=== PATIENT | female | born 1995 | race Caucasian/White ===

== ENCOUNTER 2017-03-18 15:09 | Outpatient (CLI) | payer MEDICAID ==
--- NOTE | 2017-03-18 17:03 | ULT ---
OBSTETRIC SONOGRAM TRANSABDOMINAL IMAGING WITH DUPLEX EVALUATION 03/18/17 HISTORY: Early . Inconsistent dates. FINDINGS: The urinary bladder is unremarkable. Single gestational sac in the endometrial cavity contains a yolk sac and pole. Heart motion is demonstrated at 165 beats per minute. Measurements correlate wit h 9 weeks, 2 days gestational size giving an estimated date of delivery of 10/19/16. The right ovary i s 2.5 cm in length and the left 2.8 cm. Each has a normal sonographic appearance and demonstrates goo d color and spectral doppler flow. IMPRESSION: Single viable intrauterine gestation with estimated gestational age based on today's sonogram of 9 we eks, 2 days. POS: [facility]
== END 2017-03-18 15:10 | disposition home or self-care (01) ==
LOC: ULT 15:09
PROVIDERS: ATTEND Nurse Practitioner
DX: Z34.01 Encounter for supervision of normal first pregnancy, first trimester (principal)
CPT/HCPCS: 76856; 93976

== ENCOUNTER 2017-10-23 05:30 | Inpatient (IN) | payer OTHER ==
[2017-10-23 13:41] VITALS: BMI 31.2
[2017-10-23] MEDS ORDERED: NS w/ Oxytocin 10 units 500 ML ONE (14:42)
[2017-10-23] MEDS ORDERED: Lidocaine 1% (PF) 30 ML VIAL SC PRN (15:09)
[2017-10-23] MEDS ORDERED: HYDROcodone/Acetaminophen 5/325 mg Tablet PO PRN ×2 (15:09)
[2017-10-23] MEDS ORDERED: Ibuprofen 800 MG TAB PO PRN (15:09)
[2017-10-23] MEDS ORDERED: Ondansetron HCl/PF 4 MG/2 ML Vial IVP PRN (15:09)
[2017-10-23] MEDS ORDERED: Lactated Ringer's 1,000 ML IV SCH (15:15)
[2017-10-23] MEDS ORDERED: NS w/ Oxytocin 10 units 500 ML IV SCH (15:15)
[2017-10-23 15:43] LABS: Hemoglobin 11.3 g/dL (12.0-16.0); Mean Corpuscular HGB CONC 34.8 g/dL (32.0-36.0); Mean Corpuscular Hemoglobin 29.4 pg (27.0-31.0); Mean Corpuscular Volume 84.4 fL (78.0-98.0); Mean Platelet Volume 8.8 fL (7.4-10.4); Platelet Count 167 thou/uL (130-400); RBC Distribution Width 12.5 % (11.5-14.5); Red Blood Cell (RBC) Count 3.85 mill/uL (4.20-5.40); White Blood Cell (WBC) Count 7.5 thou/uL (4.8-10.8)
[2017-10-23 16:12] LABS: HBSAg Index 0.26 S/CO (0-0.99); Hep B Surf Ag Non-Reactive S/CO (NonReactive); Syphilis Antibody Nonreactive (Nonreactive); Syphilis Antibody Index 0.02 S/CO (<1.00 Non-Reactive)
--- NOTE | 2017-10-23 18:04 | PDOC.LDHP ---
Labor and Delivery H&P Chief complaint: contractions, scheduled induction HPI: 22yo at 40w4d by 9w sono for postdate IOL. No complaints, +ctx, no VB LOF. Current gestational age (weeks): 40 Due date: 10/19/17 Dating criteria: first trimester ultrasound Grav: 1 Para: 0 Current complications: none Abnormal US findings: No Past Medical History: denies Current medications: pre-lacho vitamins Previous surgical history: none Allergies/Adverse Reactions: Allergies Allergy/AdvReac Type Severity Reaction Status Date / Time No Known Allergies Allergy Unverified 10/23/17 13:09 Social history: none - Physical Exam Vital signs reviewed and normal: yes General: NAD Heart: RRR Lungs: CTAB Abdomen: gravid Extremeties: no edema FHT: category 1 [place] contractions every: 3min - Vaginal Exam cm dilated: 3 Effacement: 75% Station: -2 (arom clear) - OB Labs Blood type: A RH: positive Antibody Screen: negative HIV: negative RPR: negative HEPSAg: negative 1 hour GCT: negative GBS: negative Urine drug screen: negative Rubella: non-immune Additional Labs: LSIL pap - Assessment L&D Assessment: medically indicated induction - Plan Plan: admit to L&D, labor augmentation if indicated, informed consent obtained, anesthesia consult for pain management
[2017-10-23] MEDS: Lactated Ringer's 1,000 ML IV SCH (18:53)
[2017-10-24] MEDS ORDERED: Butorphanol Tartrate 1 MG/ML VIAL ONE ×2 (04:03→05:54)
[2017-10-24] MEDS: Lactated Ringer's 1,000 ML IV SCH ×4 (04:08→22:05)
[2017-10-24] MEDS ORDERED: Butorphanol Tartrate 1 MG/ML VIAL SLOW IVP PRN ×2 (06:20→10:49)
--- NOTE | 2017-10-24 06:51 | PDOC.LDPN ---
Labor & Delivery Progress Note - Subjective Subjective: painful contractions - Objective Vital signs reviewed and normal: yes General: NAD Uterine fundus: non tender Dilation: 8 Effacement: 90% Station: 1+ (reynaldo) FHT: category 2, early decelerations, variable decelerations [place] contractions every: 2-4min -: protracted course due to variable decels that respond to resuscitation, overall good btbv and accels, early decels currently, incr pitocin and expect . Amnioinfuse for variable.
[2017-10-24] MEDS: NS / Oxytocin 40 units/1000ml 1,000 ML IV PRN ×2 (08:50→10:37)
[2017-10-24] MEDS ORDERED: Misoprostol 200 MCG TAB ONE (09:41)
[2017-10-24] MEDS ORDERED: Methylergonovine 0.2 MG/ML VIAL ONE (10:14)
[2017-10-24] MEDS ORDERED: Carboprost 250 MCG/ML AMP ONE (10:14)
[2017-10-24] MEDS ORDERED: Promethazine HCl 25 MG/ML VIAL IM PRN (10:49)
[2017-10-24] MEDS ORDERED: Misoprostol 200 MCG TAB PR PRN (10:49)
[2017-10-24] MEDS ORDERED: Ibuprofen 800 MG TAB PO PRN (10:49)
[2017-10-24] MEDS ORDERED: Diphenoxylate HCl/Atropine Tablet PO PRN (10:49)
[2017-10-24] MEDS ORDERED: Ondansetron HCl/PF 4 MG/2 ML Vial IVP PRN ×2 (10:49)
[2017-10-24] MEDS ORDERED: Measles/Mumps/Rubella 10 MCG/0.5 ML VIAL SC ONE (10:49)
[2017-10-24] MEDS ORDERED: Benzocaine/Menthol 20-0.5% 60 ML CAN TOP PRN (10:49)
[2017-10-24] MEDS ORDERED: NS / Oxytocin 40 units/1000ml 1,000 ML IV SCH (10:49)
[2017-10-24] MEDS ORDERED: Varicella virus, LIVE 0.5 ML VIAL SC ONE (10:49)
[2017-10-24] MEDS ORDERED: Methylergonovine 0.2 MG/ML VIAL IM PRN ×2 (10:49)
[2017-10-24] MEDS ORDERED: Bisacodyl 10 MG SUPP PR PRN (10:49)
[2017-10-24] MEDS ORDERED: Acetaminophen 500 MG TAB PO PRN (10:49)
[2017-10-24] MEDS ORDERED: Misoprostol 200 MCG TAB VAG PRN (10:49)
[2017-10-24] MEDS ORDERED: Lanolin Ointment 7 GM TUBE TOP PRN (10:49)
[2017-10-24] MEDS ORDERED: Carboprost 250 MCG/ML AMP IM PRN (10:49)
[2017-10-24] MEDS ORDERED: Milk Of Magnesia 30 ML UDCUP PO PRN (10:49)
[2017-10-24] MEDS ORDERED: HYDROcodone/Acetaminophen 5/325 mg Tablet PO PRN ×3 (10:49)
[2017-10-24] MEDS ORDERED: NS / Oxytocin 40 units/1000ml 1,000 ML IV PRN (10:49)
[2017-10-24] MEDS ORDERED: Lidocaine 1% (PF) 30 ML VIAL SC PRN (10:49)
[2017-10-24] MEDS ORDERED: Adacel (T-DAP) 0.5 ML VIAL IM ONE (10:49)
[2017-10-24] MEDS: NS w/ Oxytocin 10 units 500 ML IV SCH (11:19)
[2017-10-24] MEDS: Ibuprofen 800 MG TAB PO SCH ×2 (15:05→22:04)
[2017-10-24] MEDS: Ferrous Sulfate 325 MG TAB PO SCH (18:06)
[2017-10-24] MEDS: Docusate Calcium (SURFAK) 240 MG CAP PO SCH (22:04)
[2017-10-25] MEDS: Lactated Ringer's 1,000 ML IV SCH ×3 (04:24→18:12)
[2017-10-25] MEDS: Ibuprofen 800 MG TAB PO SCH ×3 (05:56→22:04)
[2017-10-25 06:14] LABS: Hemoglobin 9.1 g/dL (12.0-16.0); Mean Corpuscular HGB CONC 34.7 g/dL (32.0-36.0); Mean Corpuscular Hemoglobin 29.6 pg (27.0-31.0); Mean Corpuscular Volume 85.4 fL (78.0-98.0); Mean Platelet Volume 8.7 fL (7.4-10.4); Platelet Count 127 thou/uL (130-400); RBC Distribution Width 12.6 % (11.5-14.5); Red Blood Cell (RBC) Count 3.07 mill/uL (4.20-5.40); White Blood Cell (WBC) Count 12.6 thou/uL (4.8-10.8)
[2017-10-25] MEDS: Prenatal Vitamin 1 TAB PO SCH (09:31)
[2017-10-25] MEDS: Docusate Calcium (SURFAK) 240 MG CAP PO SCH ×2 (09:31→22:04)
[2017-10-25] MEDS: Ferrous Sulfate 325 MG TAB PO SCH ×2 (09:31→18:04)
[2017-10-25] MEDS: NS w/ Oxytocin 10 units 500 ML IV SCH (11:15)
[2017-10-25 23:14] VITALS: BP 114/64
[2017-10-26] MEDS: Lactated Ringer's 1,000 ML IV SCH ×2 (03:53→10:49)
[2017-10-26] MEDS: Ibuprofen 800 MG TAB PO SCH (06:11)
[2017-10-26] MEDS: Prenatal Vitamin 1 TAB PO SCH (10:49)
[2017-10-26] MEDS: Docusate Calcium (SURFAK) 240 MG CAP PO SCH (10:49)
[2017-10-26] MEDS: Ferrous Sulfate 325 MG TAB PO SCH (10:49)
[2017-10-26] MEDS: NS w/ Oxytocin 10 units 500 ML IV SCH (10:50)
[2017-10-26 11:55] VITALS: TEMP 98.4
--- NOTE | 2017-11-01 14:08 | PDOC.OPDEL ---
OB Operative/Delivery Note Delivery Dr/Surgeon: MICHAELA Plata Pre-Delivery Diagnosis: active labor Procedure/Post Delivery Dx: spontaneous vaginal delivery Weeks gestation: 40 Anesthesia: none - Findings A Sex: female Weight: 6 lb 10 oz - 1 min: 8 - 5 min: 9 - Additional Findings/Plan Placenta delivered: spontaneous Repaired Obstetrical Laceration: none Estimated blood loss: 300mL See nurse notes for qualitative blood loss Compilations/Other Findings: nuchal cord and body cord Post delivery plan: routine recovery
== END 2017-10-26 13:25 | disposition home or self-care (01) | DRG 775 ==
LOC: L&D 12:38 → 3SW 10-24 17:47
PROVIDERS: ADMIT Student in an Organized Health Care Education/Training Program; ATTEND Student in an Organized Health Care Education/Training Program
PROC: 3E0P7VZ Introduction of Hormone into Female Reproductive, Via Natural or Artificial Opening (ICD-10-PCS; 2017-10-23)
PROC: 10907ZC Drainage of Amniotic Fluid, Therapeutic from Products of Conception, Via Natural or Artificial Opening (ICD-10-PCS; 2017-10-23)
PROC: 10E0XZZ Delivery of Products of Conception, External Approach (ICD-10-PCS; principal; 2017-10-24)
DX: O48.0 Post-term pregnancy (principal); O69.81X0 Labor and delivery complicated by cord around neck, without compression, not applicable or unspecified; O69.82X0 Labor and delivery complicated by other cord entanglement, without compression, not applicable or unspecified; O76 Abnormality in fetal heart rate and rhythm complicating labor and delivery; Z3A.40 40 weeks gestation of pregnancy; Z37.0 Single live birth
CPT/HCPCS: 36415; 85027; 86780; 86850; 86900; 86901; 87340; J0595; J2001; J2210; J3490